=== PATIENT | female | born 1955 | race Caucasian/White ===

== ENCOUNTER → 2017-05-23 | Outpatient (CLI) | payer BC, OTHER | LOC: RAD 12:04 | DX: R07.81 Pleurodynia (principal); R07.9 Chest pain, unspecified ==

== ENCOUNTER → 2019-08-14 | Outpatient (CLI) | payer OTHER, MEDICARE | LOC: ULTRA 08:00 | DX: R10.11 Right upper quadrant pain (principal); I10 Essential (primary) hypertension; Z90.49 Acquired absence of other specified parts of digestive tract ==

== ENCOUNTER → 2021-05-04 | Outpatient (CLI) | payer OTHER, MEDICARE | LOC: SJCVCIMAG 10:33 | PROVIDERS: ATTEND Family Medicine | DX: I49.1 Atrial premature depolarization (principal); I10 Essential (primary) hypertension; R06.00 Dyspnea, unspecified; R53.83 Other fatigue ==

== ENCOUNTER → 2021-05-04 | Outpatient (CLI) | payer OTHER | LOC: CAT 12:29 | PROVIDERS: ATTEND Internal Medicine Cardiovascular Disease | DX: Z13.6 Encounter for screening for cardiovascular disorders (principal); E78.00 Pure hypercholesterolemia, unspecified; I25.10 Atherosclerotic heart disease of native coronary artery without angina pectoris ==

== ENCOUNTER → 2021-05-12 | Outpatient (CLI) | payer OTHER, MEDICARE | LOC: ULTRA 09:20 | PROVIDERS: ATTEND Nurse Practitioner | DX: Z12.31 Encounter for screening mammogram for malignant neoplasm of breast (principal); I10 Essential (primary) hypertension; R07.89 Other chest pain ==